=== PATIENT | female | born 1990 | race Caucasian/White ===

== ENCOUNTER → 2017-11-12 | Outpatient (CLI) | payer OTHER | LOC: M.RAD 14:31 | DX: M79.671 Pain in right foot (principal) ==

== ENCOUNTER → 2018-10-02 | Outpatient (CLI) | payer OTHER | LOC: M.RAD 15:50 | DX: R07.9 Chest pain, unspecified (principal); M54.6 Pain in thoracic spine; M79.7 Fibromyalgia ==